=== PATIENT | female | born 1945 | race Caucasian/White ===

== ENCOUNTER → 2019-08-23 | Outpatient (CLI) | payer MEDICARE, OTHER ==
[~2019-08-23] MED LIST: IOPAMIDOL 370 MG/ML 200 ML INFUS..BTL INJ ONE; SODIUM CHLORIDE 0.9% 500ML 500 ML ONE; SODIUM CHLORIDE 0.9% 50ML 50 ML ONE
[2019-08-23 10:35] LABS: CREATININE, SERUM 0.98 mg/dL (0.57-1.11)
--- NOTE | 2019-08-23 13:58 | Diagnostic Imaging Report ---
EXAM: CT Chest, Abdomen and Pelvis WITH intravenous contrast INDICATION: Bladder malignancy COMPARISON: None. TECHNIQUE: The chest, abdomen and pelvis were scanned utilizing a multidetector helical scanner from the thoracic inlet to the pubic symphysis following administration of IV contrast. Coronal and sagittal reformations were obtained. Scan was performed during portal venous phase. IV CONTRAST: 100cc Isovue 370 ORAL CONTRAST: Water COMPLICATIONS: None RADIATION DOSE: Total DLP: 752 mGy*cm Dose modulation, iterative reconstruction, and/or weight based adjustment of the mA/kV was utilized to reduce the radiation dose to as low as reasonably achievable. FINDINGS: LINES/ TUBES: None. LUNGS AND AIRWAYS: The central airways are patent. No focal consolidation or pulmonary edema. No suspicious pulmonary nodules. PLEURA: The pleural spaces are clear. HEART AND MEDIASTINUM: The thyroid gland is normal. No supraclavicular, axillary, mediastinal, or hilar lymphadenopathy. The heart is not enlarged. No pericardial effusion. Mild scattered calcifications of the thoracic aorta, coronary arteries, and proximal great vessels. HEPATOBILIARY: Diffuse hepatic steatosis. No focal liver lesion. No biliary ductal dilation. Cholelithiasis without CT evidence of cholecystitis. SPLEEN: No splenomegaly. PANCREAS: No focal masses or ductal dilatation. ADRENALS: No adrenal nodules. KIDNEYS/URETERS: No hydronephrosis, stones, or solid mass lesions. PELVIC ORGANS/BLADDER: Status post radical cystectomy and ileal conduit formation with right lower quadrant ostomy. PERITONEUM / RETROPERITONEUM: 3.5 x 1.3 cm focal hypodense area in the left anterior pelvis has the appearance of a small amount of loculated fluid. No ascites. No free air. LYMPH NODES: No lymphadenopathy. VESSELS: Mild scattered atherosclerotic calcifications of the nonaneurysmal abdominal aorta and major branches. GI TRACT: Diverticulosis without CT evidence of diverticulitis. No abnormal bowel thickening. No bowel obstruction. Right lower quadrant anastomosis. BONES AND SOFT TISSUES: No acute osseous injury. No suspicious lytic or blastic lesions. Mild multilevel degenerative changes of the visualized spine. IMPRESSION: Status post cystectomy and ileal conduit formation for history of bladder malignancy. No evidence of metastatic disease in the chest, abdomen, or pelvis. Hepatic steatosis. Cholelithiasis. Diverticulosis. Signed by: Yissel Ames MD on 08/23/2019 1:54 PM
== END ==
LOC: CT 09:46
PROVIDERS: ATTEND Internal Medicine Medical Oncology
DX: C67.9 Malignant neoplasm of bladder, unspecified (principal)
CPT/HCPCS: 36415; 71260; 74177; 82565; 84520; J7040; Q9967